=== PATIENT | female | born 1995 | race African-American/Black ===

== ENCOUNTER 2016-05-14 15:46 | Emergency (ER) | payer OTHER ==
[2016-05-14 14:48] LABS: BASOPHIL# 0.1 X10e3 (0-0.3); BASOPHIL% 0.9 % (0-2.5); EOSINOPHIL# 0.1 X10e3 (0-0.7); EOSINOPHIL% 1.3 % (0.0-7.0); HEMATOCRIT 20.4 % (35.0-45.0); LYMPHOCYTE# 3.9 X10e3 (1.0-3.5); LYMPHOCYTE% 39.1 % (17.0-45.0); MEAN CELL VOLUME 127.4 FL (83-96); MEAN CORPUSCULAR HEMOGLOBIN 42.7 PG (28-34); MEAN CORPUSCULAR HGB CONC 33.5 g/dL (30-36); MEAN PLATELET VOLUME 7.5 FL (6.5-11.5); MONOCYTE# 1.4 X10e3 (0-1.0); MONOCYTE% 13.5 % (3.0-12.0); NEUTROPHIL# 4.5 X10e3 (1.5-7.1); NEUTROPHIL% 45.2 % (40-75); PLATELET COUNT 618 X10e3 (140-420); RED CELL DISTRIBUTION WIDTH 16.8 % (11.0-15.5); WHITE BLOOD COUNT 10.1 X10e3 (4.0-10.5)
[2016-05-14 14:51] LABS: INR 2.3; PROTHROMBIN TIME (PATIENT) 24.8 SECONDS (9.6-11.5)
[2016-05-14 14:54] LABS: DIFF IND YES; HEMOGLOBIN 6.9 gm/dL (12.0-16.0)
[2016-05-14 14:58] LABS: PLATELET ESTIMATE INCREASED (NORMAL)
[2016-05-14 14:59] LABS: RBC NORMAL YES
[2016-05-14 15:02] LABS: ANISOCYTOSIS SL; HYPOCHROMIA SL; POIKILOCYTOSIS SL; TARGET CELLS SL
[2016-05-14 15:03] LABS: ALBUMIN SERUM 4.2 g/dL (3.5-5.0); ALKALINE PHOSPHATASE 55 U/L (32-92); ALT (SGPT) 30 U/L (10-40); AST (SGOT) 34 U/L (10-42); BILIRUBIN, DIRECT 0.3 mg/dL (0.0-0.2); BILIRUBIN,INDIRECT 7.6 mg/dL (0.0-0.9); BILIRUBIN,TOTAL 7.9 mg/dL (0.2-2.0); BLOOD UREA NITROGEN 10 mg/dL (9-23); CARBON DIOXIDE 26 mmol/L (22-31); CHLORIDE 105 mmol/L (100-111); CREATININE SERUM 0.5 mg/dL (0.6-1.4); GLOM FILT RATE Estimated ABOVE60 mL/min (>60); GLUCOSE FASTING 86 mg/dL (70-110); POTASSIUM 3.6 mmol/L (3.5-5.1); PROTEIN TOTAL SERUM 7.3 g/dL (6.0-8.3); SODIUM 137 mmol/L (135-145)
== END 2016-05-14 16:35 | disposition home or self-care (01) ==
LOC: CED 15:46
PROVIDERS: Emergency Medicine
DX: D57.1 Sickle-cell disease without crisis (principal); Z88.1 Allergy status to other antibiotic agents
CPT/HCPCS: 36415; 80048; 80076; 85025; 85610; 99283

== ENCOUNTER 2016-05-28 21:30 | Emergency (ER) | payer OTHER ==
[2016-05-28 20:05] LABS: INR 1.1; PARTIAL THROMBOPLASTIN TIME 30.3 SECONDS (23.5-31.3)
[2016-05-28 20:12] LABS: PROTHROMBIN TIME (PATIENT) 12.1 SECONDS (9.6-11.5)
== END 2016-05-28 21:47 | disposition home or self-care (01) ==
LOC: CED 21:30
DX: R79.1 Abnormal coagulation profile (principal); Z90.49 Acquired absence of other specified parts of digestive tract; Z88.8 Allergy status to other drugs, medicaments and biological substances
CPT/HCPCS: 36415; 85610; 85730; 99283

== ENCOUNTER 2016-06-17 14:10 | Emergency (ER) | payer OTHER ==
[2016-06-17 12:47] LABS: BASOPHIL# 0.1 X10e3 (0-0.3); BASOPHIL% 1.5 % (0-2.5); EOSINOPHIL# 0.2 X10e3 (0-0.7); HEMATOCRIT 18.9 % (35.0-45.0); LYMPHOCYTE# 1.8 X10e3 (1.0-3.5); MEAN CORPUSCULAR HEMOGLOBIN 40.5 PG (28-34); MEAN CORPUSCULAR HGB CONC 32.9 g/dL (30-36); MEAN PLATELET VOLUME 7.5 FL (6.5-11.5); MONOCYTE# 1.7 X10e3 (0-1.0); MONOCYTE% 21.1 % (3.0-12.0); NEUTROPHIL# 4.1 X10e3 (1.5-7.1); NEUTROPHIL% 52.4 % (40-75); PLATELET COUNT 565 X10e3 (140-420); RED BLOOD COUNT 1.54 X10e (3.90-5.30); RED CELL DISTRIBUTION WIDTH 13.6 % (11.0-15.5); WHITE BLOOD COUNT 7.9 X10e3 (4.0-10.5)
[2016-06-17 12:54] LABS: DIFF IND YES; HEMOGLOBIN 6.2 gm/dL (12.0-16.0)
[2016-06-17 13:08] LABS: ALBUMIN SERUM 4.3 g/dL (3.5-5.0); BILIRUBIN, DIRECT 0.5 mg/dL (0.0-0.2); BILIRUBIN,TOTAL 9.5 mg/dL (0.2-2.0); BUN/CREATININE RATIO 18.33; CALCIUM SERUM 9.1 mg/dL (8.4-10.2); CREATININE SERUM 0.6 mg/dL (0.6-1.4); POTASSIUM 3.9 mmol/L (3.5-5.1); PROTEIN TOTAL SERUM 7.7 g/dL (6.0-8.3)
[2016-06-17 13:10] LABS: NUCLEATED RED BLOOD CELL 2 /100 (0); PLATELET ESTIMATE INCREASED (NORMAL)
[2016-06-17 13:11] LABS: TARGET CELLS MOD
[2016-06-17 13:12] LABS: SICKLE CELLS PRESENT
[2016-06-17 14:19] LABS: INR 2.3
[2016-06-17 14:23] LABS: PROTHROMBIN TIME (PATIENT) 24.4 SECONDS (9.6-11.5)
== END 2016-06-17 15:20 | disposition home or self-care (01) ==
LOC: CED 14:10
PROVIDERS: Emergency Medicine
DX: J06.9 Acute upper respiratory infection, unspecified (principal); D64.9 Anemia, unspecified; F17.200 Nicotine dependence, unspecified, uncomplicated; Z88.2 Allergy status to sulfonamides; Z88.8 Allergy status to other drugs, medicaments and biological substances
CPT/HCPCS: 36415; 80048; 80076; 83690; 85025; 85610; 99283

== ENCOUNTER 2016-08-09 17:54 | Emergency (ER) | payer OTHER ==
[2016-08-09 19:39] LABS: BASOPHIL# 0.1 X10e3 (0-0.3); BASOPHIL% 0.9 % (0-2.5); EOSINOPHIL# 0.2 X10e3 (0-0.7); EOSINOPHIL% 2.4 % (0.0-7.0); HEMATOCRIT 18.3 % (35.0-45.0); LYMPHOCYTE# 3.3 X10e3 (1.0-3.5); MEAN CELL VOLUME 125.9 FL (83-96); MEAN CORPUSCULAR HEMOGLOBIN 41.7 PG (28-34); MEAN CORPUSCULAR HGB CONC 33.1 g/dL (30-36); MEAN PLATELET VOLUME 7.1 FL (6.5-11.5); MONOCYTE# 1.1 X10e3 (0-1.0); MONOCYTE% 15.5 % (3.0-12.0); NEUTROPHIL# 2.2 X10e3 (1.5-7.1); NEUTROPHIL% 33.2 % (40-75); PLATELET COUNT 531 X10e3 (140-420); RED BLOOD COUNT 1.45 X10e (3.90-5.30); RED CELL DISTRIBUTION WIDTH 14.4 % (11.0-15.5); WHITE BLOOD COUNT 6.8 X10e3 (4.0-10.5)
[2016-08-09 19:48] LABS: URINE SOURCE CLEAN CATCH
[2016-08-09 19:51] LABS: DIFF IND YES
[2016-08-09 19:55] LABS: URINE APPEARANCE CLEAR; URINE BILIRUBIN NEG (NEG); URINE BLOOD NEG (NEG); URINE COLOR YELLOW; URINE GLUCOSE NEG (NEG); URINE KETONE NEG (NEG); URINE LEUKOCYTE ESTERASE NEG (NEG); URINE NITRATE NEG (NEG); URINE PH 6.5 (5-8); URINE PROTEIN NEG (NEG)
[2016-08-09 19:58] LABS: BILIRUBIN, DIRECT 0.6 mg/dL (0.0-0.2); BILIRUBIN,INDIRECT 9.4 mg/dL (0.0-0.9); CALCIUM SERUM 8.6 mg/dL (8.4-10.2); CREATININE SERUM 0.5 mg/dL (0.6-1.4); GLOM FILT RATE Estimated 160.4 mL/min (>60); POTASSIUM 3.3 mmol/L (3.5-5.1)
[2016-08-09 20:15] LABS: CULTURE INDICATED? NO
[2016-08-09 20:15] LABS: PLATELET ESTIMATE INCREASED (NORMAL); RBC NORMAL YES
== END 2016-08-09 21:47 | disposition home or self-care (01) ==
LOC: CED 17:54
PROVIDERS: Emergency Medicine
DX: O99.019 Anemia complicating pregnancy, unspecified trimester (principal); Z3A.00 Weeks of gestation of pregnancy not specified; Z86.718 Personal history of other venous thrombosis and embolism; Z79.899 Other long term (current) drug therapy
CPT/HCPCS: 36415; 80048; 80076; 81003; 82150; 83690; 84703; 85025; 99284